=== PATIENT | male | born 1955 | race Caucasian/White ===

== ENCOUNTER 2016-03-16 08:50 | Emergency (ER) | payer MEDICAID ==
[2016-03-16 10:01] LABS: BASOPHILS 0.1 % (0.0-2.0); HEMATOCRIT 43.2 % (42.0-54.0); HEMOGLOBIN 14.3 g/dL (13.5-17.5); IMMATURE GRANULOCYTES 0.3 % (0-5); LYMPHOCYTES 24.2 % (15-50); MCH 30.9 pg (26.0-34.0); MCHC 33.1 g/dL (31.0-37.0); MCV 93.3 fL (80.0-100.0); MEAN PLATELET VOLUME 10.5 fL (7.4-10.4); MONOCYTES 7.5 % (2-11); NEUTROPHILS 66.9 % (40-80); PLATELET COUNT 319 10x3/uL (130-400); RBC 4.63 10x6/uL (4.20-6.10); RDW 13.4 % (11.5-14.5); WBC 11.5 10x3/uL (4.8-10.8)
[2016-03-16 10:18] LABS: ALKALINE PHOSPHATASE 99 U/L (46-116); ALT (SGPT) 19 U/L (10-68); BILIRUBIN - TOTAL 0.52 mg/dL (0.2-1.3); C-REACTIVE PROTEIN < 0.2 mg/dL (0.0-0.9); CALC OSMOLALITY 284 mosm/kg (275-300); CALCIUM 9.2 mg/dL (8.5-10.1); CARBON DIOXIDE 30.6 mmol/L (21.0-32.0); CHLORIDE - SERUM 103 mmol/L (98-107); CREATININE - SERUM 0.7 mg/dL (0.6-1.3); GLUCOSE 80 mg/dL (74-106); POTASSIUM - SERUM 4.3 mmol/L (3.5-5.1); PROTEIN - SERUM 6.9 g/dL (6.4-8.2); SODIUM 143 mmol/L (136-145); UREA NITROGEN 15 mg/dL (7-18); eGFR NON AFRICAN AMERICAN > 90 mL/min (90-120)
== END 2016-03-16 12:10 | disposition home or self-care (01) ==
LOC: D.ER 08:50
PROVIDERS: Family Medicine
DX: M51.26 Other intervertebral disc displacement, lumbar region (principal); M54.10 Radiculopathy, site unspecified

== ENCOUNTER 2016-12-12 10:48 | Emergency (ER) | payer MEDICAID ==
[2016-12-12 11:25] LABS: BASOPHILS 0.1 % (0-2); EOSINOPHILS 0.1 % (0-7); HEMATOCRIT 38.7 % (42.0-54.0); HEMOGLOBIN 12.7 g/dL (13.5-17.5); IMMATURE GRANULOCYTES 0.2 % (0-5); LYMPHOCYTES 9.1 % (15-50); MCH 30.4 pg (26.0-34.0); MCHC 32.8 g/dL (31.0-37.0); MCV 92.6 fL (80.0-100.0); MEAN PLATELET VOLUME 10.8 fL (7.4-10.4); MONOCYTES 3.5 % (2-11); PLATELET COUNT 263 10x3/uL (130-400); RBC 4.18 10x6/uL (4.20-6.10); RDW 12.8 % (11.5-14.5); WBC 12.2 10x3/uL (4.8-10.8)
[2016-12-12 11:36] LABS: ALKALINE PHOSPHATASE 134 U/L (46-116); ALT (SGPT) 23 U/L (10-68); BILIRUBIN - TOTAL 0.78 mg/dL (0.2-1.3); CALC OSMOLALITY 274 mosm/kg (275-300); CALCIUM 8.8 mg/dL (8.5-10.1); CARBON DIOXIDE 25.3 mmol/L (21.0-32.0); CHLORIDE - SERUM 102 mmol/L (98-107); CREATININE - SERUM 0.9 mg/dL (0.6-1.3); GLUCOSE 93 mg/dL (74-106); POTASSIUM - SERUM 3.7 mmol/L (3.5-5.1); PROTEIN - SERUM 7.4 g/dL (6.4-8.2); SODIUM 137 mmol/L (136-145); UREA NITROGEN 14 mg/dL (7-18); eGFR NON AFRICAN AMERICAN > 90 mL/min (90-120)
[2016-12-12 12:24] LABS: APPEARANCE HAZY (CLEAR); BILIRUBIN NEGATIVE (NEGATIVE); COLOR YELLOW (YELLOW); GLUCOSE NEGATIVE (NEGATIVE); KETONE MODERATE mg/dL (NEGATIVE); NITRITE NEGATIVE (NEGATIVE); PROTEIN 1+ mg/dL (NEGATIVE); SPECIFIC GRAVITY 1.025 (1.005-1.020); UROBILINOGEN NORMAL (NORMAL)
[2016-12-12 12:26] LABS: EPITHELIAL CELLS 0-5 /hpf (0-5); WHITE CELLS - URINE 0-5 /hpf (0-5)
[2016-12-12 12:27] LABS: BACTERIA FEW /hpf (NONE SEEN); HYALINE CAST 0-5 /lpf (NONE SEEN); MUCUS <1+ /lpf (NONE SEEN)
== END 2016-12-12 15:19 | disposition other institution (70) ==
LOC: D.ER 10:48
PROVIDERS: Emergency Medicine
DX: N20.1 Calculus of ureter (principal)